=== PATIENT | male | born 1990 | race Caucasian/White ===

== ENCOUNTER 2021-08-28 18:01 | Emergency (ER) | payer OTHER ==
[~2021-08-28] VITALS: Ht 177.8 cm; Wt 186.3 kg
--- NOTE | 2021-08-28 18:19 | PHYS DOC ---
Adult General Chief Complaint Chief Complaint: SHORTNESS OF BREATH HPI HPI Patient is a 30-year-old male, with a past medical history of morbid obesity who presents to the emergency department via EMS for 2 to 3 days of shortness of breath. States that he lives at home with his brother who was diagnosed with Covid last week and has been at home with him since then. States he has had a productive cough as well and thinks he has had fevers at home as he is felt warm but did not take his temperature. States has been eating and drinking normally. States he is making urine and stool normally for him. Denies any history of VTE, CO or CVA. Denies any recent traumas, travels, chest pain, abdominal pain, nausea, vomiting, diarrhea. (DAVID RANDOLPH MD) Review of Systems Review of Systems Review of systems otherwise unremarkable except noted in HPI (DAVID RANDOLPH MD) Allergies Allergies Allergies Coded Allergies Type Severity Reaction Last Updated Verified No Known Drug Allergies 08/28/21 No (DAVID RANDOLPH MD) Physical Exam Physical Exam Constitutional: Well developed, well nourished, respiratory distress,, non-toxic appearance. [] HENT: Normocephalic, atraumatic, bilateral external ears normal oropharynx moist, no oral exudates, nose normal. [] Eyes: conjunctiva normal, no discharge. [] Neck: Normal range of motion, no tenderness, supple, no stridor. [] Cardiovascular: Sinus tachycardia Lungs & Thorax: Tachypnea, hypoxia on room air, increased work of breathing, bilateral global rhonchi Abdomen: soft, no tenderness, no masses, no pulsatile masses. [] Skin: Warm, dry, no erythema, no rash. [] Back: No tenderness, no CVA tenderness. [] Extremities: No tenderness, no cyanosis, no clubbing, ROM intact, no edema. [] Neurologic: Alert and oriented X 3, normal motor function, normal sensory funct ion, able to sit, stand and walk, no focal deficits noted. [] Psychologic: Affect normal, judgement normal, mood normal. [] (DAVID RANDOLPH MD) EKG EKG [] (DAVID RANDOLPH MD) Radiology/Procedures Radiology/Procedures [] (DAVID RANDOLPH MD) Heart Score C/O Chest Pain: No Risk Factors: Risk Factors: DM, Current or recent (<one month) smoker, HTN, HLP, family history of CAD, obesity. Risk Scores: Risk Factors: DM, Current or recent (<one month) smoker, HTN, HLP, family history of CAD, obesity. (DAVID RANDOLPH MD) Course & Med Decision Making Course & Med Decision Making Patient is a 30-year-old male who presents with shortness of breath after being exposed to a family member with Covid a few days ago Vital signs notable for sinus tachycardia, tachypnea, increased work of breathing and hypoxia on room air placed on CPAP on arrival. Placed on the monitor with IV access established. Physical exam noted above. [] Patient care handed off to day team for continued evaluation, treatment and disposition (DAVID RANDOLPH MD) Course & Med Decision Making The patient continued to need BiPAP and high flow nasal cannula. He was maintaining oxygen saturations above 90 and appeared comfortable. His chest x- ray shows significant bilateral Covid pneumonia. I will go ahead and place the patient on treatment level dosing of Lovenox because of the high risk of pulmonary embolus and his current respiratory distress. I spoke with Dr. Kuhn at [facility] and she has accepted the patient for transfer and admission. He was transported by ambulance. (FINN DAWKINS DO) Dragon Disclaimer Dragon Disclaimer This electronic medical record was generated, in whole or in part, using a voice recognition dictation system. (DAVID RANDOLPH MD) Departure Departure: Impression: Primary Impression: Pneumonia due to COVID-19 virus Additional Impressions: Respiratory failure BMI 50.0-59.9, adult Disposition: 02 [facility]ORT TERM [facility]OSPITAL Condition: GUARDED Referrals: PCP,UNKNOWN (PCP) Problem Qualifiers DAVID RANDOLPH MD Aug 28, 2021 18:19 FINN DAWKINS DO Aug 29, 2021 12:53
[2021-08-28] MEDS ORDERED: AZITHROMYCIN 250 MG TABLET. PO ONE (18:45)
[2021-08-28] MEDS ORDERED: DEXAMETHASONE 4 MG TABLET PO ONE (18:45)
--- NOTE | 2021-08-28 18:45 | RAD ---
XR CHEST 1V History: Shortness of breath. Comparison: None. Technique: Portable AP radiograph of the chest. Findings: The lungs are hypoinflated. Diffuse bilateral airspace consolidations. No pleural effusion identified . No pneumothorax. The cardiac silhouette and pulmonary vasculature are obscured. Osseous structures and soft tissues are unremarkable. Impression: 1. Diffuse bilateral airspace opacities concerning for multifocal infection or pulmonary edema. Electronically signed by: Tremaine Noland MD (08/28/2021 6:42 PM) [facility]
[2021-08-28] MEDS ORDERED: cefTRIAXone SODIUM 1 GM VIAL ONE (18:52)
[2021-08-28] MEDS ORDERED: IV NORMAL SALINE 50ML 50 ML ONE (18:52)
[2021-08-28 19:05] LABS: BASO % 0 % (0-3); EOS % 0 % (0-3); HEMATOCRIT 42.4 % (39.0-53.0); HEMOGLOBIN 14.2 g/dL (13.0-17.5); LYMPH # 0.9 x10^3/uL (1.0-4.8); LYMPH % 16 % (24-48); MEAN CORPUSCULAR HEMOGLOBIN 26 pg (25-35); MEAN CORPUSCULAR HGB CONC 34 g/dL (31-37); MEAN CORPUSCULAR VOLUME 78 fL (79-100); MONO # 0.5 x10^3/uL (0.0-1.1); MONO % 8 % (0-9); NEUT # 4.6 x10^3uL (1.8-7.7); NEUT % 76 % (31-73); PLATELET COUNT 156 x10^3/uL (140-400); RED BLOOD COUNT 5.42 x10^6/uL (4.30-5.70); RED CELL DISTRIBUTION WIDTH 15.5 % (11.5-14.5)
[2021-08-28 19:14] LABS: CALCIUM 7.4 mg/dL (8.5-10.1); CREATININE 0.9 mg/dL (0.7-1.3); GFR 98.4
[2021-08-28] MEDS ORDERED: ONDANSETRON PF 4 MG/2 ML VIAL. IVP ONE (19:15)
[2021-08-28 19:27] LABS: ALBUMIN 3.2 g/dL (3.4-5.0); TOTAL BILIRUBIN 0.6 mg/dL (0.2-1.0); TOTAL PROTEIN 6.5 g/dL (6.4-8.2)
[2021-08-28] MEDS ORDERED: ACETAMINOPHEN 500 MG TABLET PO ONE (21:15)
[2021-08-28 21:21] LABS: BACTERIA,URINE 0 /HPF (0-FEW); BILIRUBIN,URINE NEG (NEG); CLARITY,URINE CLEAR; COLOR,URINE YELLOW; GLUCOSE,URINE NEG (NEG); NITRITE,URINE NEG (NEG); SQUAMOUS EPITHELIAL CELL,UR OCC /LPF; UROBILINOGEN,URINE 0.2 mg/dL (0.2 mg/dL); WBC,URINE OCC /HPF (0-4)
[2021-08-29] MEDS ORDERED: IV RINGERS SOLUTION,LACTATED 1,000 ML IV ONE (03:00)
--- NOTE | 2021-08-29 05:30 | EKG ---
[address] [address] Test Date: 2021-08-28 Test Time: 18:50:26 Pat Name: ANTONI DASH Department: Room: Gender: M [employer] Machine: [place] : 1990 Requested By: DAVID RANDOLPH Order Number: [id number] Reading MD: Keny Burger Measurements Intervals [place] Rate: 97 P: 0 CA: 138 QRS: 38 QRSD: 96 T: 17 QT: 344 QTc: 441 Interpretive Statements SINUS RHYTHMjavascript:perform('study_confirm'); NORMAL ECG RI6.02 No previous ECG available for comparison Electronically Signed On 08-29-2021 7:56:07 PROCESS CONTROL MANAGER by Keyn Burger
[2021-08-29] MEDS ORDERED: ENOXAPARIN ** NOTE DOSE ** SYRINGE SQ ONE (06:30)
[2021-08-29] MEDS ORDERED: BUDESONIDE 0.5 MG/2 ML NEBU NEB ONE (07:45)
[2021-08-29] MEDS ORDERED: ENOXAPARIN ** NOTE DOSE ** SYRINGE SQ SCH ×2 (09:00)
[2021-08-29 09:44] VITALS: BP 119/57
[2021-08-29] MEDS ORDERED: AZITHROMYCIN 250 MG TABLET. PO SCH (18:00)
[2021-08-29] MEDS ORDERED: DEXAMETHASONE SOD PHOS 10 MG/ML VIAL. IVP SCH (18:00)
== END 2021-08-29 10:24 | disposition short-term general hospital (02) ==
LOC: ER 18:01
DX: U07.1 COVID-19 (principal); J12.82 Pneumonia due to coronavirus disease 2019; J96.90 Respiratory failure, unspecified, unspecified whether with hypoxia or hypercapnia; E66.01 Morbid (severe) obesity due to excess calories; Z68.43 Body mass index [BMI] 50.0-59.9, adult
CPT/HCPCS: 36415; 71045; 80053; 81001; 82803; 83605; 83880; 84484; 85025; 87040; 87426; 93005; 94640; 94660; 96361; 96365; 96372; 96375; 99285; J0696; J1650; J2405; J3010; J7120; J8540